=== PATIENT | female | born 1955 | race Two or more races ===

== ENCOUNTER 2021-04-30 06:23 | Emergency (ER) | payer OTHER ==
[~2021-04-30] VITALS: Ht 160 cm; Wt 61.2 kg
[2021-04-30] MEDS ORDERED: ALENDRONATE SOD70 MG (06:33)
[2021-04-30] MEDS ORDERED: AZOR 5-20 MG T1 EACH (06:33)
[2021-04-30] MEDS ORDERED: ATORVASTATIN CA10 MG (06:34)
[2021-04-30] MEDS ORDERED: PEPCID AC20 MG PO (07:03)
[2021-04-30] MEDS ORDERED: KETO10TA2 PO (07:03)
== END 2021-04-30 07:14 | disposition home or self-care (01) ==
LOC: ER 06:23
DX: S50.01XA Contusion of right elbow, initial encounter (principal); S30.0XXA Contusion of lower back and pelvis, initial encounter; W18.39XA Other fall on same level, initial encounter; Y93.89 Activity, other specified; Y92.89 Other specified places as the place of occurrence of the external cause; Y99.8 Other external cause status